=== PATIENT | female | born 1945 | race Caucasian/White ===

== ENCOUNTER 2017-07-29 02:28 | Inpatient (IN) | payer OTHER ==
[~2017-07-29] VITALS: Ht 152.4 cm; Wt 59.0 kg
[~2017-07-29 02:28] MED LIST: CENTRUM SILVER1 EACH PO; LISINOPRIL-HCT1 EAC2 PO; SIMVASTATIN10 M1 PO
[2017-07-29 08:57] LABS: ABSOLUTE BASOPHIL COUNT 0 /CUMM (0.0-0.2); ABSOLUTE EOSINOPHIL COUNT 0.1 /CUMM (0.0-0.7); ABSOLUTE GRANULOCYTE CT 3.7 /CUMM (1.4-6.5); ABSOLUTE LYMPH COUNT 1.3 /CUMM (1.2-3.4); ABSOLUTE MONOCYTE COUNT 0.6 /CUMM (0.10-0.60); BASOPHIL % 0.3 % (0.0-2.0); EOSINOPHIL % 1.9 % (0-5); GRANULOCYTE % 65.1 % (42.2-75.2); HEMATOCRIT 38.6 % (37-47); MEAN CORPUSCULAR HGB 31.6 PG (27.0-31.0); MEAN CORPUSCULAR HGB CONC 34.2 G/DL (33.0-37.0); MEAN CORPUSCULAR VOLUME 92.4 FL (81.0-99.0); MEAN PLATELET VOLUME 8.4 FL (7.4-10.4); PLATELET COUNT 284 /CUMM (130-400); RBC DISTRIBUTION WIDTH 13.4 % (11.5-14.5); RED BLOOD CELL CT 4.18 /CUMM (4.20-5.40); WHITE BLOOD CELL COUNT 5.7 /CUMM (4.8-10.8)
--- NOTE | 2017-07-29 11:04 | Admission Core Measures ---
Acute Coronary Syndrome (CM) ACS Core Measures Acute Coronary Syndrome Diagnosis No Congestive Heart Failure (NEW) CHF Core Measures Congestive Heart Failure Diagnosis No Cerebrovascular Accident (NEW) CVA Core Measures CVA/TIA Diagnosis No Venous Thromboembolism VTE Core Carlos (View Protocol) VTE Risk Factors Surgery No Mechanical VTE Prophylaxis d/t N/A MechProphylax Ordered No VTE Pharm Prophylaxis d/t NA PharmProphylax ordered Problem List As ranked by this Provider includes Assessment & Plan 1. Unilateral primary osteoarthritis, right hip HOME MEDS Home Med List Lisinopril/Hydrochlorothiazide (Lisinopril-Hctz 10-12.5 MG Tab) 10 MG-12.5 MG TABLET 1 TAB PO DAILY BP (Reported) Multivit-Min/Iron/Folic/Lutein (Centrum Silver Women Tablet) 8 MG IRON-400 MCG- 300 MCG TABLET 1 TAB PO DAILY SUPPLEMENT (Reported) Simvastatin (Simvastatin*) 10 MG TABLET 1 TAB PO QPM CHOLESTEROL (Reported)
--- NOTE | 2017-07-29 11:06 | Surg Short-stay <48hrs Dis Sum ---
Visit Information Visit Dates Admission Date: 07/29/17 Discharge Date: 07/30/17 Surgical Short Stay DC Summary Admission Diagnosis: Primary osteoarthritis, right hip Final Diagnosis: Primary osteoarthritis, right hip s/p R THR Procedure(s): Right total hip replacement Summary/Significant Findings: Patient was admitted to the hospital for an elective right total hip replacement. Procedure was tolerated well and patient was transferred to a general surgical floor. Diet was advanced and tolerated. Physical therapy performed evaluation and treatment. At time of hospital discharge, vital signs were stable, neurovascular status was intact, and pain was controlled with the use of oral pain medications. Condition at Discharge: Stable Discharge Disposition: home health services Discharge instructions provided to patient/family: Yes Post discharge follow-up plan: F/u with Dr. Mast in 6 weeks for postop check
[2017-07-29] MEDS ORDERED: COLACE100 M1 PO (11:08)
[2017-07-29] MEDS ORDERED: DILAUDID2 M1 PO (11:08)
[2017-07-29] MEDS ORDERED: MIRALAX17 G1 PO (11:08)
[2017-07-29] MEDS ORDERED: ASPIRIN325 M2 PO (11:08)
[2017-07-29] MEDS ORDERED: OMEPRAZOLE20 M2 PO (11:08)
--- NOTE | 2017-07-29 12:39 | RADIOLOGY REPORT ---
EXAMINATION: XR HIP, RIGHT CLINICAL INFORMATION: In PACU. Status post right total hip. COMPARISON: 09/18/2012 TECHNIQUE: AP and crosstable lateral views of the right hip. FINDINGS: Prosthetic components of the right total hip arthroplasty are appropriately aligned. No periprosthetic fracture. Gas from recent surgery is present in the surrounding soft tissues. There is tubing is present in the joint. IMPRESSION: Normal postoperative appearance of the right total hip prosthesis.
[2017-07-29 13:45] VITALS: BP 130/60
--- NOTE | 2017-07-29 14:21 | PN- Orthopedic ---
Subjective Subjective: POST-OP NOTE No complaints. Out of bed to chair. Denies dizziness. No shortness of breath. No chest pains. Tolerating clears. No nausea. She reports "someone told me I'd be staying overnight since I have a drain". Objective Vital Signs and I&Os Intake & Output 07/29 1600 07/29 0800 07/29 0000 07/28 1600 07/28 0800 07/28 0000 Intake Total Output Total Balance Patient 130 lb Weight pacu flowsheet reviewed. vitals stable. due to void (drain emptied 45 in pacu and floor has emptied another 40 bloody drainage) Physical Exam: General - alert & oriented. out of bed to chair. comfortable. Lungs - clear bilaterally. no w/r/r. Cardiac - s1s2. reg. Abdomen - soft. nontender. Extremities - warm bilaterally. right hip dressing c/d/i. hemovac drain in placed with bloody drainage. nvi. calves soft and nontender. athrombics in place. Current Medications: Current Medications Sig/Shahid Start time Last Medication Dose Route Stop Time Status Admin Acetaminophen 650 MG Q4P PRN 07/29 1330 AC PO Acetaminophen 0 .STK-MED ONE 07/29 0854 DC PO Acetaminophen 975 MG ONCE 07/29 0000 DC PO 07/29 2359 Aspirin 325 MG BID 07/29 2200 AC PO Atorvastatin Calcium 5 MG 1700 07/29 1700 AC PO Cefazolin Sodium 2 GM IQ8 07/29 1600 AC N/A 1 UNIT IV 07/30 0029 Cefazolin Sodium 2,000 MG ONCE 07/29 0000 DC IV 07/29 2359 Dextrose/Sodium 1,000 ML Q13H 07/29 1430 AC Chloride IV Dextrose/Sodium 1,000 ML .[id number] 07/29 1330 DC Chloride IV Docusate Sodium 100 MG BID 07/29 2200 AC PO Hydrochlorothiazide 12.5 MG DAILY 07/30 1000 AC PO Hydromorphone HCl 2 MG Q4P PRN 07/29 1330 AC PO Hydromorphone HCl 4 MG Q4P PRN 07/29 1330 AC PO Ketorolac 15 MG Q8P PRN 07/29 1100 AC Tromethamine IV Lisinopril 10 MG DAILY 07/30 1000 AC PO Morphine Sulfate 2 MG Q2P PRN 07/29 1330 AC IV Multivitamins 1 TAB DAILY 07/30 1000 AC PO Omeprazole 20 MG DAILY AC 07/30 0700 AC PO Ondansetron HCl 4 MG Q6P PRN 07/29 1330 AC IV Oxycodone HCl 0 .STK-MED ONE 07/29 0854 DC PO Oxycodone HCl 10 MG ONCE 07/29 0000 DC PO 07/29 2359 Polyethylene Glycol 17 GM DAILY 07/30 1000 AC PO Promethazine HCl 12.5 MG Q6P PRN 07/29 1330 AC IV 08/05 1059 Results Last 48 Hours of Labs: Laboratory Tests 07/29 0845 Hematology CBC w Diff NO MAN DIFF REQ WBC (4.8 - 10.8 /CUMM) 5.7 RBC (4.20 - 5.40 /CUMM) 4.18 L Hgb (12.0 - 16.0 G/DL) 13.2 Hct (37 - 47 %) 38.6 MCV (81.0 - 99.0 FL) 92.4 MCH (27.0 - 31.0 PG) 31.6 H RDW (11.5 - 14.5 %) 13.4 Plt Count (130 - 400 /CUMM) 284 MPV (7.4 - 10.4 FL) 8.4 Gran % (42.2 - 75.2 %) 65.1 Lymphocytes % (20.5 - 51.1 %) 22.4 Monocytes % (1.7 - 9.3 %) 10.3 H Eosinophils % (0 - 5 %) 1.9 Basophils % (0.0 - 2.0 %) 0.3 Absolute Granulocytes (1.4 - 6.5 /CUMM) 3.7 Absolute Lymphocytes (1.2 - 3.4 /CUMM) 1.3 Absolute Monocytes (0.10 - 0.60 /CUMM) 0.6 Absolute Eosinophils (0.0 - 0.7 /CUMM) 0.1 Absolute Basophils (0.0 - 0.2 /CUMM) 0 PUBS MCHC (33.0 - 37.0 G/DL) 34.2 Assessment/Plan Assessment/Plan This 71 year old female with hx htn is POD#0 s/p right total hip replacement for primary osteoarthritis, hemovac drain in place advance diet as tolerated pain medication as needed, as ordered kimberley-operative ancef x 2 doses PT eval due to void monitor drainage from hemovac asa bid - dvt ppx d/c planning ?today vs tomorrow will d/w Core Measures Venous Thromboembolism VTE Risk Factors Surgery No Mechanical VTE Prophylaxis d/t N/A MechProphylax Ordered No VTE Pharm Prophylaxis d/t NA PharmProphylax ordered
--- NOTE | 2017-07-29 15:10 | Operative Report ---
Operative/Inv Procedure Report Surgery Date: 07/29/17 Name of Procedure: Right total hip replacement Pre-Operative Diagnosis: Primary right hip DJD Post-Operative Diagnosis: Same Estimated Blood Loss: 300 Surgeon/Business Liaison Manager: Kezia RICHARDSON,Hu Le Anesthesia: block Operative/Procedure Note Note: Description of Procedure: The patient was taken to the operating room and positively identified. After induction of spinal anesthesia and administration of appropriate pre-operative antibiotics, the patient was positioned supine on the operating room table and all bony prominences were well padded. After performing a surgical timeout, the right lower extremity was prepped and draped in the usual sterile fashion. A direct anterior approach was made to the right hip. The incision was carried sharply through superficial soft tissues to the level of the fascia. Meticulous hemostasis was maintained with Bovie electocautery. The fascia over the tensor fascia ha muscle was opened sharply and the interval between the TFL and the sartorius was entered bluntly taking care to stay lateral to the lateral femoral cutaneous nerve. Retractors were placed around the femoral neck and the pericapsular fat was identified. The ascending branches of the lateral femoral circumflex vessels were identified and carefully coagulated. The pericapsular fat and anterior capsule were then resected. A napkin ring osteotomy was performed and the femoral head was removed without difficulty. Attention was then turned to the acetabulum. After appropriate placement of retractors, the acetabulum was exposed. Soft tissue was cleaned from the acetabular margin and notch. Overhanging osteophytes were removed and the teardrop was exposed. The acetabulum was then sequentially reamed to accept a 50 mm Yandy Tritanium hemispherical solid shell. This was impacted into place in the appropriate position and fitted with a 36 mm Trident X3 zero degree polyethylene insert. Attention was then turned to the femur. After performing the appropriate ligament releases, the proximal femur was exposed. It was then sequentially broached to accept a size 1 Yandy Accolade II stem. This was trialed for leg length and stability. The trial component was removed and the final component was impacted into place. The trunnion was carefully cleaned and fit with a 36 mm, +7.5 Biolox delta ceramic femoral head. The hip was reduced and put through a full range of motion and found to be stable. The articular space was then irrigated with sterile saline. The periarticular soft tissues were infilitrated with Marcaine. The fascial layer was closed with interrupted #1 vicryl suture and the skin was re-approximated with interrupted 2 -0 vicryl. The skin was closed with a running 3-0 V-Lock suture. Steri-strips and a sterile dressing were applied. The patient was awakened and taken to the recovery room in satisfactory condition.
[2017-07-29 18:21] VITALS: BP 138/80
[2017-07-29 22:14] VITALS: BP 122/60
[2017-07-30 06:57] VITALS: BP 118/70
--- NOTE | 2017-07-30 07:26 | PN- Orthopedic ---
Subjective Subjective: Awake, alert No specific complaints overnight Pain is tolerable with meds OOB with PT yesterday - not cleared at that time for discharge Denies nausea Objective Vital Signs and I&Os Vital Signs Date Time Temp Pulse Resp B/P B/P Pulse O2 O2 Flow FiO2 Mean Ox Delivery Rate 07/30 0657 98.1 98 20 118/70 96 Room Air 07/29 2214 98.5 100 20 122/60 96 Room Air 07/29 1821 98.0 100 19 138/80 98 Room Air 07/29 1345 96.9 72 18 130/60 97 Room Air Intake & Output 07/30 0800 07/30 0000 07/29 1600 07/29 0800 07/29 0000 07/28 1600 Intake Total 400 650 325 Output Total 580 1025 45 Balance -180 -375 280 Intake, IV 650 75 Intake, Oral 400 250 Output, 80 125 45 Drainage Output, Urine 500 900 Patient 130 lb 130 lb Weight Physical Exam: vss, afebrile Hemovac: just emptied 80cc bloody drainage from overnight shift/125cc prior shift General: alert and oriented times three Chest: clear anteriorly bilaterally, RRR Abd: soft, good bs Ext: warm, no edema, positive sensate, no calf tenderness Wd: dressed, dry, hemovac in place Assessment/Plan Assessment/Plan 71yo female s/p R THR pod 1 PT - wbat - await discharge clearance Pain management asa 325mg po bid for dvt ppx ALPS monitor hemovac drainage, likely dc later this morning dc ivf Core Measures Venous Thromboembolism VTE Risk Factors Surgery No Mechanical VTE Prophylaxis d/t N/A MechProphylax Ordered No VTE Pharm Prophylaxis d/t NA PharmProphylax ordered
[2017-07-30 08:47] LABS: ABSOLUTE BASOPHIL COUNT 0 /CUMM (0.0-0.2); ABSOLUTE EOSINOPHIL COUNT 0 /CUMM (0.0-0.7); ABSOLUTE GRANULOCYTE CT 7.8 /CUMM (1.4-6.5); ABSOLUTE MONOCYTE COUNT 0.9 /CUMM (0.10-0.60)
[2017-07-30 09:05] LABS: ABSOLUTE LYMPH COUNT 1.2 /CUMM (1.2-3.4); BASOPHIL % 0.1 % (0.0-2.0); EOSINOPHIL % 0.2 % (0-5); GRANULOCYTE % 79.1 % (42.2-75.2); MEAN CORPUSCULAR HGB 31.7 PG (27.0-31.0); MEAN CORPUSCULAR HGB CONC 33.2 G/DL (33.0-37.0); MEAN CORPUSCULAR VOLUME 95.4 FL (81.0-99.0); MEAN PLATELET VOLUME 9.2 FL (7.4-10.4); PLATELET COUNT 172 /CUMM (130-400); RBC DISTRIBUTION WIDTH 13.6 % (11.5-14.5); RED BLOOD CELL CT 3.14 /CUMM (4.20-5.40)
[2017-07-30 09:29] VITALS: BP 132/72
[2017-07-30 09:39] LABS: HEMATOCRIT 29.9 % (37-47); WHITE BLOOD CELL COUNT 9.8 /CUMM (4.8-10.8)
== END 2017-07-30 13:21 | disposition home health service (06) | DRG 470 ==
LOC: SDA 02:28 → ENRESERV 12:20 → ENTRNSPT 13:07 → EDTRNSPTSTS 13:12 → EDTRNSPT 13:12 → 2NA 13:18 → CMPTRNSPT 13:49 → ENTRNSPT 07-30 13:11 → EDTRNSPT 07-30 13:16 → EDTRNSPTSTS 07-30 13:16 → 2NA 07-30 13:21 → CMPTRNSPT 07-30 13:46
PROVIDERS: Orthopaedic Surgery; Physician Assistant Surgical
PROC: 0SR904A Replacement of Right Hip Joint with Ceramic on Polyethylene Synthetic Substitute, Uncemented, Open Approach (ICD-10-PCS; principal; 2017-07-29)
DX: M16.11 Unilateral primary osteoarthritis, right hip (principal); M25.751 Osteophyte, right hip
CPT/HCPCS: 2NAP; 36415; 73502-RT; 82436; 97110-GO; 97116-GO; 97161-GP; J0690; J0735; J2405; J2550; J7042